=== PATIENT | male | born 1940 | race Caucasian/White ===

== ENCOUNTER → 2016-10-16 | Outpatient (CLI) | payer OTHER | LOC: BMCIMAGING 08:24 | PROVIDERS: ATTEND Internal Medicine | DX: N28.1 Cyst of kidney, acquired (principal) ==

== ENCOUNTER 2016-10-18 17:04 | Inpatient (IN) | payer OTHER ==
--- NOTE | 2016-10-18 17:24 | EDPHY ---
H & P Time Seen by Provider: 10/18/16 17:19 HPI/ROS: HPI Back pain for months, evaluate for multiple myeloma, multiple falls. This 75-year-old male by private vehicle with his family members. He was sent from the office of Dr. Belinda Moe at [facility]. He presents with complaint of ongoing and worsening mid to lower left-sided back pain at the L2/L3 level. He denies any acute bowel or bladder incontinence. No fever. No loss of sensation or weakness in his lower extremities. Dr. Moe is concerned about possible multiple myeloma as a source of this patient's back pain. The patient also has a history of an abdominal aortic aneurysm. She is requesting imaging. Patient reports that he has seen chiropractors, a [facility] physician and had no relief in his back pain. He describes it as isolated to the left side, L2/L3 area. He describes it as sharp and stabbing. Family reports multiple falls at home secondary to the pain. They are requesting admission. Dr. Moe apparently spoke with oncologist Dr. Devine who will consult on the patient after admission. ROS: Constitutional: No fever, no chills. As above. Eyes: No discharge. No changes in vision. ENT: No sore throat. No nasal congestion or rhinorrhea. Respiratory: No cough. No shortness of breath. Cardiac: No chest pain, no palpitations. Gastrointestinal: No abdominal pain, no vomiting, no diarrhea. Genitourinary: No hematuria. No dysuria or increased frequency with urination. Musculoskeletal: As above. No neck pain. No myalgias or arthralgias. Skin: No rashes. Neurological: No headache. No focal weakness or altered sensation. Past medical history: Hypertension, coronary artery disease, peptic ulcer. Dr. Belinda Moe is his primary care physician. Social history: Nonsmoker. No alcohol. Here with his family. Physical Exam: General Appearance: Alert, no distress. This patient is responding to questions appropriately and in full sentences. This patient appears well- hydrated and well-nourished. Eyes: Pupils equal and round no pallor or injection. No lid edema, erythema or injection. Back exam: He does have some vague tenderness on palpation, paraspinal tissues , left-sided adjacent to L2/L3. He also has vague left-sided CVA tenderness. He has a negative same side and cross side straight leg raise test. He is neurologically intact in all myotomes in dermatomes of the bilateral lower extremities. Respiratory: There are no retractions, lungs are clear to auscultation with good air movement bilaterally. Cardiovascular: Regular rate and rhythm. No murmur. Gastrointestinal: Abdomen is soft and nontender, no masses, bowel sounds normal. No focal tenderness at McBurney's point. No Medeiros sign. Neurological: Motor sensory function is grossly intact. Cranial nerves are normal. Skin: Warm and dry, no rashes. Musculoskeletal: Neck is supple and nontender. Extremities are symmetrical. All joints range without pain or impingement. Psychiatric: No agitation. No depression. Database: EKG: Imaging: CT scan of chest abdomen and pelvis with IV contrast: Significant for lytic lesions throughout the bony elements. He does have a small compression fracture at T11 with an associated lytic lesion. There is acute soft tissue mass associated with his sacrum. Likely multiple myeloma. No AAA. Results were discussed with staff radiologist Dr. Eben Gallego. Procedures: Emergency department course: IV was placed. Vital signs reviewed. He is moderately hypertensive. Vital signs otherwise normal. Patient is afebrile. He was placed on a monitor. He was started on IV normal saline with 500 cc to 1 L to be given over the next hour. He will be sent for CT imaging as above to evaluate for pathologic fracture as well as aortic aneurysm. He was given 0.5 mg of IV hydromorphone and 4 mg of IV Zofran initially for pain and some mild nausea. This will be repeated as needed for pain. 8:30 p.m., patient re-evaluated. Results of CT scan and blood work discussed with the patient and family. Plan for admission and oncology consultation discussed. All of their questions were answered. Spoke with hospitalist, Dr. Bunch, case discussed in detail. He accepts this patient for admission. The patient will be admitted to [address] [place] [address]. Hospitalist service will consult with Oncology, Dr. Devine, on further management. The patient was admitted to the hospitalist service, [address] [place] [address] in stable condition. Differential Diagnosis: The differential diagnosis on this patient includes but is not limited to bulging intervertebral disc, malignancy, pathologic fracture, abdominal aortic aneurysm. This represents a partial list of diagnoses considered. These considerations are based on history, physical exam, past history, reassessment and diagnostic testing. Smoking Status: Former smoker Constitutional: Initial Vital Signs Temperature (C) 36.4 C 10/18/16 17:09 Heart Rate 72 10/18/16 17:09 Respiratory Rate 16 10/18/16 17:09 Blood Pressure 157/75 H 10/18/16 17:09 O2 Sat (%) 95 10/18/16 17:09 O2 Delivery Mode Room Air Allergies/Adverse Reactions: No Known Allergies Allergy (Unverified 02/02/11 19:34) Home Medications: Medication Instructions Recorded Acetaminophen [Tylenol ES 500 mg 1,000 mg PO Q6H PRN 10/18/16 (*)] Ascorbic Acid [Vitamin C 500 mg 500 mg PO DAILY 10/18/16 (*)] Atorvastatin Calcium [Lipitor 40 40 mg PO HS 10/18/16 mg (*)] Cholecalciferol Vit D3 [Vitamin D3 1,000 units PO DAILY 10/18/16 (*)] Clopidogrel Bisulfate [Plavix (*)] 75 mg PO HS 10/18/16 Losartan/Hydrochlorothiazide 1 each PO DAILY 10/18/16 [Hyzaar 100-12.5 Tablet] Multivitamins [Multivitamin (*)] 1 each PO DAILY 10/18/16 Nortriptyline HCl [Pamelor 10 mg 10 mg PO HS 10/18/16 (*)] amLODIPine BESYLATE [Norvasc 5 mg 5 mg PO DAILY 10/18/16 (*)] Medical Decision Making - Data Points Laboratory Results: Laboratory Results 10/18/16 17:45 10/18/16 17:45 Medications Given: Discontinued Medications Hydromorphone HCl (Dilaudid) 0.5 mg IVP EDNOW ONE Stop: 10/18/16 17:40 Last Admin: 10/18/16 17:55 Dose: 0.5 mg Hydromorphone HCl (Dilaudid) 0.5 mg IVP EDNOW ONE Stop: 10/18/16 19:46 Last Admin: 10/18/16 19:50 Dose: 0.5 mg Sodium Chloride (Ns) 1,000 mls @ 0 mls/hr IV EDNOW ONE; Wide Open PRN Reason: Protocol Stop: 10/18/16 17:40 Last Admin: 10/18/16 17:55 Dose: 1,000 mls Ondansetron HCl (Zofran) 4 mg IVP EDNOW ONE Stop: 10/18/16 17:40 Last Admin: 10/18/16 17:52 Dose: 4 mg Departure - Departure Disposition: [facility] Inpatient Acute Clinical Impression: Back pain, Probable multiple myeloma, T11 pathologic compression fracture
[2016-10-18] MEDS ORDERED: HYDROmorphONE/DILAUDID 1 MG/ML SYR IVP ONE ×2 (17:39→19:45)
[2016-10-18] MEDS ORDERED: ONDANSETRON 4 MG/2 ML VIAL IVP ONE (17:39)
[2016-10-18] MEDS ORDERED: NS 1,000 ML IV ONE (17:39)
[2016-10-18 17:53] LABS: % IMMATURE GRANULYOCYTES 0.3 % (0.0-1.1); ABSOLUTE IMMATURE GRANULOCYTES 0.03 10^3/uL (0.00-0.10); ADD DIFF? NO; ADD MORPH? NO; ADD SCAN? NO; ATYPICAL LYMPHOCYTE FLAG 10 (0-99); FRAGMENT RBC FLAG 0 (0-99); HEMATOCRIT 39.5 % (40.0-51.0); HEMOGLOBIN 13.3 g/dL (13.7-17.5); LEFT SHIFT FLG 10 (0-99); LIPEMIA HEMOLYSIS FLAG 80 (0-99); MEAN CELL HEMOGLOBIN 33.1 pg (27.9-34.1); MEAN CELL HEMOGLOBIN CONCENTR. 33.7 g/dL (32.4-36.7); MEAN CELL VOLUME 98.3 fL (81.5-99.8); MEAN PLATELET VOLUME 10.1 fL (8.7-11.7); PLATELET CLUMPS FLAG 0 (0-99); PLATELET COUNT 201 10^3/uL (150-400); RED BLOOD CELL COUNT 4.02 10^6/uL (4.40-6.38); RED CELL DISTRIBUTION WIDTH 13.6 % (11.5-15.2)
[2016-10-18] MEDS ORDERED: IOPAMIDOL (ISOVUE-300) 100 ML BTL ONE (18:05)
[2016-10-18 19:06] LABS: ANION GAP 15 mEq/L (8-16); CALCIUM 9.4 mg/dL (8.5-10.4); CARBON DIOXIDE 18 mEq/l (22-31); CHLORIDE 107 mEq/L (97-110); CREATININE 0.9 mg/dL (0.7-1.3); GLOMERULAR FILTRATION RATE > 60; GLUCOSE 100 mg/dL (70-100); SODIUM 140 mEq/L (134-144); SPECIMEN HEMOLYSIS 122
[2016-10-18 19:07] LABS: POTASSIUM 4.6 mEq/L (3.3-5.0)
[2016-10-18 20:10] LABS: COLOR YELLOW; LEUKOCYTE ESTERASE,URINE NEGATIVE (NEGATIVE); MUCUS TRACE /lpf (NONE-1+); NITRITE,URINE NEGATIVE (NEGATIVE)
[2016-10-18] MEDS ORDERED: ONDANSETRON DISINTEGRATING 4 MG TAB PO PRN (23:03)
[2016-10-18] MEDS ORDERED: HYDROmorphONE/DILAUDID 1 MG/ML SYR IVP PRN (23:03)
[2016-10-18] MEDS ORDERED: ACETAMINOPHEN 325 MG TAB PO PRN (23:03)
[2016-10-18] MEDS ORDERED: ONDANSETRON 4 MG/2 ML VIAL IVP PRN (23:03)
--- NOTE | 2016-10-19 05:02 | GHP ---
[f rep st] HISTORY AND PHYSICAL DATE OF ADMISSION: 10/19/2016 CHIEF COMPLAINT: Back pain. HISTORY OF PRESENT ILLNESS: This is a 75-year-old male with a longstanding history of what he descr ibes as sciatic back pain, which appears to have been steadily worsening over the course of the last 10-12 years. Patient sought out patient evaluation, including chiropractors and ultimately evaluat ion at [facility] with MRI imaging, which showed abnormalities in his bone. Patient was then referr ed for additional evaluation. Patient has as he describes nearly crippling pain of his lower back t hat radiates down his legs. Has noticed some urinary incontinence and dribbling. Denies any hematu natalie. Denies any changes in his bowel habits. Denies shortness of breath, chest pain, vision change s, headaches. Has noted several skin excoriations that have seemed to be slow to heal. PAST MEDICAL HISTORY: 1. Coronary artery disease, status post stenting in 2008. 2. Obstructive sleep apnea. 3. Hypertension. 4. Chronic back pain. 5. New presumed diagnosis multiple myeloma. SOCIAL HISTORY: Negative for tobacco, alcohol, or illicit drugs. FAMILY HISTORY: Positive for multiple myeloma in his mother. ADVANCED DIRECTIVES: The patient wishes to be full cor, full tube. REVIEW OF SYSTEMS: A 10-point review of systems is negative with the exception of that reported in the HPI. PHYSICAL EXAMINATION: VITAL SIGNS: Blood pressure 153/76, heart rate 62, respirations 16, 93% on r oom air. GENERAL: This is a very pleasant, elderly male, in no acute distress. HEENT: Notable fo r dry mucous membranes. EYES: Negative for any icterus. CARDIAC: Patient is regular rate and rhy thm. PULMONARY: Clear to auscultation bilaterally. GASTROINTESTINAL: Positive bowel sounds. Abd omen is soft, nontender. MUSCULOSKELETAL: Negative for any lower extremity edema. SKIN: Negative for any rashes. NEUROLOGIC: Patient is alert and oriented x3. PSYCHIATRIC: He is pleasant and c ooperative on interview and examination. DATA: White count 8.9, hematocrit 39.5, platelets of 201. Creatinine is 0.9. CT of the chest and abdomen, which I personally reviewed and interpreted, shows multiple bony lytic lesions and a mass a ssociated with the sacrum suspicious for myeloma. ASSESSMENT AND PLAN: This is a 75-year-old male presenting with back pain. 1. Suspected new diagnosis of multiple myeloma. Patient has elevated protein and laboratory findin gs consistent lytic bone lesions and a concerning sacral mass. Will consult Hematology/Oncology in the morning for consultation and assistance on additional diagnosis to help with clarifying prognosi s and plan. 2. Back pain. Patient does appear to have a T11 compression fracture, as well as lytic lesions, an d an abnormal soft tissue mass in the sacrum. Will treat with IV and p.o. pain medications, and aga in loop in Oncology for assistance related to additional diagnostics to help moving forward towards a diagnostic plan. 3. Coronary artery disease. Patient denies any chest pain. Will continue his home medications wit hout change. 4. Hypertension. Patient's blood pressures are mildly elevated. Will follow after continuing his home medications. 5. Prophylaxis with Lovenox. 6. Diet regular. DISPOSITION: I expect greater than 2 midnights as he will likely require multiple consultants and [facility] for a therapeutic plan. I discussed the case with the emergency room physician. Cj cobb will be triaged to the medical-surgical floor for care. /[id number]/MODL
[2016-10-19] MEDS: amLODIPine BESYLATE 5 MG TAB PO SCH (08:39)
[2016-10-19] MEDS: LOSARTAN/HCTZ 50/12.5 1 TAB PO SCH (08:39)
[2016-10-19] MEDS: LOSARTAN POTASSIUM 50 MG TAB PO SCH (08:39)
[2016-10-19] MEDS: MULTIVITAMINS 1 EACH TAB PO SCH (08:40)
[2016-10-19] MEDS: ASCORBIC ACID 500 MG TAB PO SCH (08:40)
[2016-10-19] MEDS: ENOXAPARIN 40 MG/0.4 ML SYR SC SCH (08:40)
[2016-10-19] MEDS: CHOLECALCIFEROL VIT D3 1,000 UNITS TAB PO SCH (08:40)
[2016-10-19] MEDS ORDERED: NON-FORMULARY NEW DRUG (Losartan/Hydrochlorothiazide [Hyzaar 100-12.5 Tablet] 1 EACH) PO SCH (09:00)
[2016-10-19] MEDS ORDERED: LOSARTAN/HCTZ 50/12.5 1 TAB PO SCH (09:00)
[2016-10-19 09:30] LABS: % IMMATURE GRANULYOCYTES 0.5 % (0.0-1.1); ABSOLUTE IMMATURE GRANULOCYTES 0.03 10^3/uL (0.00-0.10); ADD DIFF? NO; ADD MORPH? NO; ADD SCAN? NO; ATYPICAL LYMPHOCYTE FLAG 10 (0-99); FRAGMENT RBC FLAG 0 (0-99); HEMATOCRIT 36.7 % (40.0-51.0); HEMOGLOBIN 12.5 g/dL (13.7-17.5); LEFT SHIFT FLG 10 (0-99); LIPEMIA HEMOLYSIS FLAG 90 (0-99); MEAN CELL HEMOGLOBIN 33.4 pg (27.9-34.1); MEAN CELL HEMOGLOBIN CONCENTR. 34.1 g/dL (32.4-36.7); MEAN CELL VOLUME 98.1 fL (81.5-99.8); PLATELET CLUMPS FLAG 0 (0-99); PLATELET COUNT 186 10^3/uL (150-400); RED BLOOD CELL COUNT 3.74 10^6/uL (4.40-6.38); RED CELL DISTRIBUTION WIDTH 13.5 % (11.5-15.2)
[2016-10-19 09:47] LABS: ANION GAP 9 mEq/L (8-16); CARBON DIOXIDE 22 mEq/l (22-31); CHLORIDE 108 mEq/L (97-110); CREATININE 0.9 mg/dL (0.7-1.3); GLOMERULAR FILTRATION RATE > 60; GLUCOSE 116 mg/dL (70-100); SODIUM 139 mEq/L (134-144)
[2016-10-19] MEDS: HYDROCODONE/APAP 5/325 TAB PO PRN ×3 (14:59→20:23)
[2016-10-19] MEDS ORDERED: LIDOCAINE 2% JELLY 20 ML (UROJECT) ONE (15:12)
[2016-10-19] MEDS ORDERED: LIDOCAINE 2% 5 ML SDV ID ONE ×2 (15:30→16:15)
--- NOTE | 2016-10-19 16:39 | GCON ---
[f rep st] CONSULTATION HEMATOLOGY/ONCOLOGY CONSULTATION. HISTORY OF PRESENT ILLNESS: The patient is a very pleasant 75-year-old gentleman who has a long his tory of back discomfort dating back at least 12 years that has intermittently responded to chiroprac tic manipulation and steroid injection. He tells me he had an MRI of the lumbar spine in 2016, alth ough I do not have results at the time of this dictation. Over the last 4 months; however, the pain has gotten significantly worse to the point where it is sometimes excruciating. [facility] for evaluation. Of note, he had seen his primary care physician, Dr. Rajan vela, and a number of labs had been drawn prior to admission which show a mild anemia and elevated t otal protein of around 10. Serum protein electrophoresis shows an M spike of 4.[address] udies done last night included CT of the chest, abdomen, and pelvis. The CT scan of the chest is pe rtinent for numerous lytic lesions of the skeleton. This includes the medial right 3rd rib, the lef t scapula, the T1 spinous process, multiple vertebral bodies including the right posterior aspect of T4, with the largest lesion in the left posterior aspect of T11 extending into the pedicle, with a minimal pathologic fracture of the vertebral body. There were also lesions at L4 and the sacrum is nearly completely replaced with an expansile soft tissue mass. Additional lytic lesions are present including the left ischium. The patient's weight has been stable. He denies any B symptoms. PAST MEDICAL HISTORY: Significant for coronary artery disease with a stent in 2008, possible sleep apnea, hypertension. SOCIAL HISTORY: He is a nonsmoker. FAMILY HISTORY: His mother of multiple myeloma. REVIEW OF SYSTEMS: A 10-point review of systems is negative with the exception of those discussed i n the HPI. PHYSICAL EXAMINATION: GENERAL: He is a pleasant, very alert male, appearing his stated age. VITAL SIGNS: Blood pressure is 130/72. He is afebrile. O2 sat is 91%. HEENT: He is not icteric. Pha rynx is unremarkable. I detect no cervical, supraclavicular, axillary, or inguinal adenopathy. ANJEL GS: Clear to auscultation and percussion. CARDIAC: Normal S1, S2, without murmurs, clicks, or add ed sounds. ABDOMEN: Benign without organomegaly. He may have very slight weakness of his left leg . NEUROLOGIC: Otherwise unremarkable. LABORATORY DATA: White count of 5.71, hemoglobin 12.5, hematocrit 36.7, platelets are 186,000. Sri walter panel is otherwise unremarkable. Of note, his creatinine is normal at 0.9. IMPRESSION: I think the patient has myeloma by definition. He has an elevated paraprotein and lyti c lesions in his bones. On a positive note, his kidney function appears normal at this time and he only has a mild anemia and there is no evidence of hypercalcemia. I think his pain is related both to the sacral lesion and to T11, and I think we should obtain a radiation consult regarding those ar eas. I think he needs systemic treatment. I would lean toward Revlimid, Velcade, and dexamethasone . I am going to do a bone marrow biopsy this afternoon, which will be dictated under separate cover and sent for flow cytometry, as well as FISH testing. Patient will also need a bisphosphonate, and I think we might administer that prior to discharge. I personally reviewed his films with Radiolog y. We discussed myeloma, the fact that although it is not considered to be a curable illness there have been significant advances in treatment and we have high expectations of effective treatment and relief of symptoms as well as prolongation in survival. /[id number]/MODL
[2016-10-19] MEDS ORDERED: HYDROmorphONE/DILAUDID 1 MG/ML SYR IVP PRN (16:41)
--- NOTE | 2016-10-19 17:59 | HOSPPROG ---
Hospitalist Progress Note Assessment/Plan: 1. suspected new diagnosis of multiple myeloma -Dr Devine and I discussed care plan -bone marrow biopsy today -likely empiric Tx per onc 2. Back pain from lytic lesions/cancer -discussed pain management in general -encouraged medication and non medication interventions 3. CAD -home medications 4. HTN -home medications -monitor closely 5. Anemia -monitor closely -likely from bone lesions, but query him tomorrow re GI screening 6. VERA -home CPAP DVT prophy-lovenox FULL CODE PCP Dr Chanel Tomlin Dispo >2 mdnts pending diagnosis and treatments per oncology Subjective: Says only if pain if moves, doesn't want to take pain medications. very nervous re possible MRI- claustrophobic and requesting sedation (but no MRI planned per Dr Devine). Says very constipated prev with valium (?). No CP/ SOB. Family in room. Objective: Vital Signs Temp Pulse Resp BP Pulse Ox 98.0 F 68 20 156/79 H 92 10/19/16 13:25 10/19/16 15:36 10/19/16 15:36 10/19/16 15:36 10/19/16 15:36 Laboratory Results 10/19/16 09:20 10/19/16 09:20 10/18/16 10/19/16 10/20/16 11:59 11:59 11:59 Intake Total 1600 Output Total 400 Balance 1200 - Physical Exam Constitutional: no apparent distress, appears nourished Eyes: PERRL, anicteric sclera, EOMI Ears, Nose, Mouth, Throat: moist mucous membranes Cardiovascular: regular rate and rhythym, no murmur, rub, or gallop, No edema Respiratory: no respiratory distress, no rales or rhonchi, clear to auscultation Gastrointestinal: normoactive bowel sounds, soft, non-tender abdomen, no palpable masses Skin: warm, normal color Psychiatric: interacting appropriately, not anxious, not encephalopathic, thought process linear ICD10 Worksheet Patient Problems: Problems Problem Status Onset Back pain Acute
[2016-10-19] MEDS ORDERED: LACTULOSE 20 GM/30 ML UDCUP PO PRN ×2 (18:00→18:03)
[2016-10-19] MEDS ORDERED: POLYETHYLENE GLYCOL 3350 17 GM PKT PO PRN ×2 (18:00→18:03)
[2016-10-19] MEDS ORDERED: MAGNESIUM HYDROXIDE 30 ML UDCUP PO PRN ×2 (18:00→18:03)
[2016-10-19] MEDS ORDERED: BISACODYL 10 MG SUPP PR PRN ×2 (18:00→18:03)
[2016-10-19] MEDS: SENNOSIDES/DOCUSATE SODIUM TAB PO SCH (20:22)
[2016-10-19] MEDS ORDERED: ATORVASTATIN CALCIUM 40 MG TAB PO SCH (21:00)
[2016-10-19] MEDS ORDERED: SENNOSIDES/DOCUSATE SODIUM TAB PO SCH (21:00)
[2016-10-19] MEDS ORDERED: CLOPIDOGREL BISULFATE 75 MG TAB PO SCH (21:00)
[2016-10-19] MEDS ORDERED: NORTRIPTYLINE HCL 10 MG CAP PO SCH (21:00)
[2016-10-19 23:55] VITALS: RESP 16
--- NOTE | 2016-10-20 00:49 | GPN ---
[f rep st] PROCEDURE NOTE PROCEDURE: Bone marrow biopsy. The left iliac crest prepped and draped in the usual fashion, anesthetized with 15 cc of 2% Xylocain e. Core biopsy and aspirate taken without incident. Patient tolerated it well. Sent for routine p ath, cytogenetics, flow cytometry, and a myeloma FISH panel. /[id number]/MODL
[2016-10-20 04:52] LABS: % IMMATURE GRANULYOCYTES 0.5 % (0.0-1.1); ABSOLUTE IMMATURE GRANULOCYTES 0.03 10^3/uL (0.00-0.10); ADD DIFF? NO; ADD MORPH? NO; ADD SCAN? NO; ATYPICAL LYMPHOCYTE FLAG 0 (0-99); FRAGMENT RBC FLAG 0 (0-99); HEMATOCRIT 35.7 % (40.0-51.0); HEMOGLOBIN 12.3 g/dL (13.7-17.5); LEFT SHIFT FLG 30 (0-99); LIPEMIA HEMOLYSIS FLAG 90 (0-99); MEAN CELL HEMOGLOBIN CONCENTR. 34.5 g/dL (32.4-36.7); MEAN CELL VOLUME 98.6 fL (81.5-99.8); MEAN PLATELET VOLUME 9.8 fL (8.7-11.7); PLATELET CLUMPS FLAG 0 (0-99); PLATELET COUNT 171 10^3/uL (150-400); RED BLOOD CELL COUNT 3.62 10^6/uL (4.40-6.38); RED CELL DISTRIBUTION WIDTH 13.5 % (11.5-15.2)
[2016-10-20 05:04] LABS: ALANINE AMINOTRANSFERASE 27 IU/L (21-72); ALBUMIN 3.3 g/dL (3.5-5.0); ALKALINE PHOSPHATASE 75 IU/L (38-126); ANION GAP 10 mEq/L (8-16); ASPARTATE AMINOTRANSFERASE 18 IU/L (17-59); BILIRUBIN,TOTAL 0.4 mg/dL (0.1-1.4); CARBON DIOXIDE 23 mEq/l (22-31); CHLORIDE 108 mEq/L (97-110); GLOMERULAR FILTRATION RATE > 60; GLUCOSE 94 mg/dL (70-100); POTASSIUM 4.3 mEq/L (3.5-5.2); SODIUM 141 mEq/L (134-144); TOTAL PROTEIN 9.2 g/dL (6.3-8.2)
[2016-10-20] MEDS: ASCORBIC ACID 500 MG TAB PO SCH (07:56)
[2016-10-20] MEDS: CHOLECALCIFEROL VIT D3 1,000 UNITS TAB PO SCH (07:56)
[2016-10-20] MEDS: SENNOSIDES/DOCUSATE SODIUM TAB PO SCH (07:56)
[2016-10-20] MEDS: LOSARTAN/HCTZ 50/12.5 1 TAB PO SCH (07:56)
[2016-10-20] MEDS: amLODIPine BESYLATE 5 MG TAB PO SCH (07:56)
[2016-10-20] MEDS: ENOXAPARIN 40 MG/0.4 ML SYR SC SCH (07:56)
[2016-10-20] MEDS: LOSARTAN POTASSIUM 50 MG TAB PO SCH (07:57)
[2016-10-20] MEDS: MULTIVITAMINS 1 EACH TAB PO SCH (07:57)
[2016-10-20 09:18] VITALS: BP 158/88; PULSE 83; TEMP 98.1; O2SAT 93
[2016-10-20] MEDS: HYDROCODONE/APAP 5/325 TAB PO PRN ×2 (11:02→14:54)
--- NOTE | 2016-10-20 11:50 | SOAPPROG ---
JUAN C Progress Note Assessment/Plan: Assessment: 1. Myeloma with bone involvement Plan:Start RT sunday, will give Zometa, dex and subq velcade today plan is for RVD lite, will follow up CC next week, rx for dex sent to [facility], also zocherry 10/20/16 11:47 10/20/16 11:48 Objective: Vital Signs Temp Pulse Resp BP Pulse Ox 98.1 F 83 16 158/88 H 93 10/20/16 09:18 10/20/16 09:18 10/20/16 09:18 10/20/16 09:18 10/20/16 09:18 Laboratory Results 10/20/16 04:38 10/20/16 04:38 10/19/16 10/20/16 10/21/16 05:59 05:59 05:59 Intake Total 1600 2300 Output Total 400 Balance 1200 2300 ICD10 Worksheet Patient Problems: Problems Problem Status Onset Back pain Acute
[2016-10-20] MEDS ORDERED: ZOLEDRONIC ACID IV ONE (14:00)
[2016-10-20] MEDS ORDERED: ZOLEDRONIC ACID 4 MG in D5W 100 ML IV ONE (14:00)
[2016-10-20] MEDS ORDERED: D5W IV ONE (14:00)
[2016-10-20] MEDS ORDERED: DEXAMETHASONE 4 MG TAB PO ONE (14:30)
[2016-10-20] MEDS ORDERED: BORTEZOMIB SC ONE (14:30)
[2016-10-20 16:42] LABS: BETA-2 MICROGLOBULIN SERUM 3.4 mcg/mL
[2016-10-20 18:04] LABS: IG KAPPA FREE LIGHT CHAIN 1.42 mg/dL; IG LAMBDA FREE LIGHT CHAIN 44.1 mg/dL; KAPPA/LAMBDA RATIO 0.0322
--- NOTE | 2016-10-20 22:13 | GCON ---
[f rep st] CONSULTATION RADIATION ONCOLOGY INPATIENT CONSULTATION CONSULTING SERVICE: Medical Oncology REASON FOR CONSULTATION: Likely multiple myeloma with several sites of bone metastases, role for radiation. PATIENT IDENTIFICATION: The patient is a 75-year-old gentleman with longstanding history of back pain and sciatic-like symptoms as well as coronary artery disease, who presented with [id number] low back and sciatica-type pain and, unfortunately, was found to have multiple lytic lesions throughout multiple bony sites and lab abnormalities that are suggestive of multiple myeloma. I am being consulted regarding the role of palliative radiation to some of those sites of disease. HISTORY OF PRESENT ILLNESS: The patient once again reports a longstanding history of low back and sciatica-type pain that has been managed with chiropractic manipulation and steroid injections. Last summer he reported getting an MRI of the spine, which we do not have available for review, but he reports that it did not show any abnormalities suggestive of myeloma or widespread bony involvement. Over the past 4 months, he reports that the pain in his low back and sciatica distribution has gotten significantly worse and at some times is excruciating. He is quite averse to narcotics and has been managing with Tylenol. He presented to the emergency department at [facility], where his pain was managed and workup ensued. He had a CT of the chest, abdomen, and pelvis with contrast which, unfortunately, showed numerous lytic lesions, most likely representing multiple myeloma or less likely lytic metastases, including an expansile soft tissue mass replacing the majority of the sacrum. There was a minimal pathologic compression fracture of the left T11 vertebral body. He also had plain films of his left humerus, which showed a small lytic lesion in the proximal radial diaphysis. A femur x- ray demonstrated no appreciable lytic lesions in the right femur. Left femur x- ray showed lytic lesions in the sacrum and proximal left femoral diaphysis, likely related to myeloma, with no pathologic fracture identified. Dr. Emir Devine has consulted with the patient and performed a bone marrow biopsy on October 20, 2016, with pathology still pending. INTERVAL HISTORY: Since being in the hospital, overall the patient feels relatively well. His pain is under control, and once again he is averse to taking narcotics. He is written for [place] 5/325, and his last administration was last night at approximately 8:30. He is also written for Dilaudid IV with his last dose being yesterday afternoon at the time of the bone marrow biopsy. The patient reports ambulating quite well with no significant weakness in his bilateral legs. He denies any bowel or bladder incontinence. He is somewhat constipated and has been taking MiraLAX but otherwise reports regular stools, regular urination. He denies any weight loss, fevers, chills, or night sweats. Overall, he looks well and overall feels relatively well. He is quite functional at home and lives in [place] with his . REVIEW OF SYSTEMS: A complete review of systems is obtained and is negative except as mentioned above. PAST MEDICAL HISTORY: 1. Coronary artery disease with a stent in 2008. 2. Possible obstructive sleep apnea. 3. Hypertension. 4. Likely multiple myeloma. PAST SURGICAL HISTORY: None. FAMILY HISTORY: His mother did have multiple myeloma and from that illness. SOCIAL HISTORY: He lives in [place] and is not an alcohol, tobacco, or illicit drug user. 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 He is , and he is alone today in his hospital room. MEDICATIONS: Tylenol, [place], amlodipine, vitamin C, Lipitor, Dulcolax, vitamin D, Plavix, Lovenox, Hyzaar, Dilaudid, , Cozaar, milk of magnesia, multivitamin, nortriptyline, Zofran, MiraLAX, Senokot. ALLERGIES: No known drug allergies. PHYSICAL EXAMINATION: VITAL SIGNS: Blood pressure 158/88, pulse 83, respiratory rate 16, oxygen sat is 93% on room air, temperature is 36.7. GENERAL: The patient is a well-appearing, pleasant gentleman, who is sitting comfortably in his hospital chair and in no acute distress. CARDIOVASCULAR: Regular rate and rhythm. Normal S1, S2. No murmurs, rubs, or gallops. LUNGS: Clear to auscultation bilaterally. ABDOMEN: Soft, nontender, nondistended. NEUROLOGIC: Cranial nerves II-XII are intact. 5/5 strength in the upper extremities; 5/5 strength in the right lower extremity with 4/5 strength in the left lower extremity. Gait is cautious, but stable. Negative cerebellar testing. LYMPHATICS: No lymph nodes palpated in the cervical, supraclavicular, axillary lymph node regions. IMAGING: Please see HPI above. LABS: White count 5.71, hemoglobin 12.5, hematocrit 36/7, platelets 186. Creatinine 0.9. PATHOLOGY: Likely multiple myeloma. ASSESSMENT AND PLAN: The patient is a 75-year-old gentleman with recent diagnosis of likely multiple myeloma with diffuse lytic lesions throughout the axial and appendicular skeleton with elevated light chains, status post bone marrow biopsy that is pending. I am being consulted regarding a role of palliative radiation to a few of his sites of bony disease. I had a long discussion with the patient and his family today regarding the diagnosis and management of multiple myeloma. I discussed with the patient that the mainstay of treatment is a systemic therapy, which Dr. Devine is coordinating with him to be started soon and likely will be RVD. In terms of radiation, the role is palliative in nature treating sites of disease that are either currently symptomatic and poorly controlled with medications, such as narcotics or areas that could place him at jeopardy of having symptoms in the future. The 2 areas that are most concerning to me are the T11 vertebral body that has already produced a lytic lesion that has eroded through the posterior cortex of that vertebral body and could theoretically cause cord compression or cord compromise in the future. 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 I proposed a regimen of 30 Gy in 10 fractions to both of those areas to be started fairly soon give his symptoms. Although, the patient is quite functional and although he has pain, does seem to have good strength and mobility and an ECOG performance status of 1. With that said, we do wish to give him extra control to these areas as they could be poorly controlled with chemotherapy and lead to future symptoms. I had a long discussion with the patient and his family regarding the side effect profile of external beam radiotherapy. Side effects would include fatigue , skin irrigation, difficulty or pain with swallowing, pneumonitis, kidney damage, weakening the bone, spinal cord damage, bowel or bladder issues, nausea , vomiting, risk of a secondary radiation-associated malignancy, pain flare. After out discussion today, the patient wishes to proceed with palliative radiation and gave us verbal and written consent to proceed with planning and delivery. I plan to give him his first dose on October 23, 2016, as the patient is anticipated to be discharged fairly soon from the hospital. In the meantime, Dr. Devine is considering starting him on RVd. We can certainly see how he tolerates that in the future. The patient also tells me that he is planning to relocate to [place] and is in the process of selling his home in [place]. He may need to coordinate with Dr. Devine to establish care and continue systemic treatment in [place]. We exchanged contact information with the patient and his family, and if he has any questions or concerns he is encouraged to email me, call me on my cell phone , or call our clinic for assistance. /[id number]/MODL and [id number]/MODL. MTDD
--- NOTE | 2016-10-21 00:18 | GDS ---
[f rep st] DISCHARGE SUMMARY DISCHARGE DIAGNOSES: 1. Probable multiple myeloma. 2. Back pain due to lytic lesions. 3. History of coronary artery disease. 4. Hypertension. 5. Mild anemia. 6. Obstructive sleep apnea. HISTORY: This is a 75-year-old male presenting with worsening back pain. HOSPITAL COURSE: Patient was admitted and had scanning, which confirmed most significant lytic lesi ons in the spine. He did have an elevated total protein level. He is strongly suspected to have mu ltiple myeloma. He underwent a bone marrow biopsy, as well as PET scanning. He will be getting 1 d ose of chemotherapy in the hospital. His pain has been treated with oral Vicodin with fair response . He does not want a lot of pain medicines. We will discharge him today with close followup with O ncology to follow up on the results of all the testing and to initiate therapy. DISPOSITION: Home. DISCHARGE MEDICATIONS: He is to resume his home medications. In addition, he will be given Vicodin 10/325 to take 1-2 q.6 hours p.r.n. Greater than 30 minutes was spent on discharge. /[id number]/MODL
[2016-10-21 09:34] LABS: FINAL DIAGNOSIS See Comments; MICROSCOPIC DESCRIPTION See Comments; SPECIAL STUDIES See Comments
== END 2016-10-20 16:25 | disposition home or self-care (01) | DRG 841 ==
LOC: F1N 22:10
PROVIDERS: ADMIT Internal Medicine; ATTEND Hospitalist
PROC: 07DR3ZX Extraction of Iliac Bone Marrow, Percutaneous Approach, Diagnostic (ICD-10-PCS; principal; 2016-10-19)
PROC: 3E03305 Introduction of Other Antineoplastic into Peripheral Vein, Percutaneous Approach (ICD-10-PCS; 2016-10-20)
DX: C90.00 Multiple myeloma not having achieved remission (principal); M84.58XA Pathological fracture in neoplastic disease, other specified site, initial encounter for fracture; I10 Essential (primary) hypertension; I25.10 Atherosclerotic heart disease of native coronary artery without angina pectoris; D64.9 Anemia, unspecified; G47.33 Obstructive sleep apnea (adult) (pediatric)
CPT/HCPCS: 82232-90; 84166-90; 85060-90; 86334-90; 88184-90; 88185-91; 88237-90; 88262-90; 96374; J1170; J1650; J2405; J3489; J9041; Q9967

== ENCOUNTER → 2017-01-05 | Outpatient (CLI) | payer OTHER | LOC: FIMAGING 13:58 | PROVIDERS: ATTEND Nurse Practitioner | DX: M79.605 Pain in left leg (principal) ==